=== PATIENT | female | born 1965 | race Caucasian/White ===

== ENCOUNTER 2017-04-08 11:45 | Emergency (ER) | payer SELFPAY ==
[2017-04-08 11:49] VITALS: BP 139/99; PULSE 79; RESP 22; TEMP 98.4; O2SAT 98
[2017-04-08 11:51] VITALS: BP 139/99; PULSE 82; RESP 22; TEMP 98.4; O2SAT 98
[2017-04-08] MEDS ORDERED: SODIUM CHLOR 0.9% 1000 ML INJ 1,000 ML IV SCH (11:54)
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
[2017-04-08] MEDS ORDERED: ONDANSETRON HCL 4 MG/2 ML VIAL IVP ONE (12:00)
[2017-04-08] MEDS ORDERED: LIDOCAINE VISCOUS 2% SOLN 15 ML UDC PO ONE (12:00)
[2017-04-08] MEDS ORDERED: ALUMINUM/MAGNESIUM/SIMETH 30 ML CUP PO ONE (12:00)
[2017-04-08] MEDS ORDERED: LORazepam 2 MG/ML VIAL IV PUSH ONE (12:00)
[2017-04-08 12:34] LABS: AUTOMATED NEUTROPHIL # 2.4 TH/MM3 (1.8-7.7); BASOPHIL # 0.1 TH/MM3 (0-0.2); BASOPHIL % 1.2 % (0.0-2.0); EOSINOPHIL % 0.7 % (0.0-4.0); HEMATOCRIT 34.5 % (35.0-46.0); HEMO FLAGS DIFF FINAL; LYMPH % 43.7 % (9.0-44.0); LYMPHOCYTE # 2.3 TH/MM3 (1.0-4.8); MEAN CELL VOLUME 100.2 FL (80.0-100.0); MEAN CORPUSCULAR HEMOGLOBIN 34.1 PG (27.0-34.0); MONO % 9.6 % (0.0-8.0); NEUT % 44.8 % (16.0-70.0); PLATELET COUNT 125 TH/MM3 (150-450); RED BLOOD COUNT 3.45 MIL/MM3 (4.00-5.30); RED CELL DISTRIBUTION WIDTH 13.5 % (11.6-17.2); WHITE BLOOD COUNT 5.3 TH/MM3 (4.0-11.0)
[2017-04-08 13:00] LABS: ALKALINE PHOSPHATASE 131 U/L (45-117); ALT (GPT) 45 U/L (10-53); ANION GAP 10 MEQ/L (5-15); AST (GOT) 166 U/L (15-37); BICARBONATE 24.9 MEQ/L (21.0-32.0); BLOOD UREA NITROGEN 4 MG/DL (7-18); CHLORIDE 99 MEQ/L (98-107); GLOMERULAR FILTRATION RATE 163 ML/MIN (>89); SODIUM (NA) 134 MEQ/L (136-145); TOTAL BILIRUBIN ADULT 0.6 MG/DL (0.2-1.0)
[2017-04-08 13:01] LABS: POTASSIUM 4.2 MEQ/L (3.5-5.1)
== END 2017-04-08 12:50 | disposition left against medical advice (07) ==
LOC: NEPC 11:45
DX: S70.12XA Contusion of left thigh, initial encounter (principal); T76.21XA Adult sexual abuse, suspected, initial encounter; R10.13 Epigastric pain; R11.2 Nausea with vomiting, unspecified; I34.1 Nonrheumatic mitral (valve) prolapse; I10 Essential (primary) hypertension; R56.9 Unspecified convulsions; Z72.0 Tobacco use; Y09 Assault by unspecified means
CPT/HCPCS: 80053; 83690; 85025; 99283; J2060; J2405; J7030

== ENCOUNTER → 2017-07-28 | Emergency (ER) | payer SELFPAY ==
[~2017-07-28] VITALS: Ht 160 cm; Wt 55.0 kg
[~2017-07-28] MED LIST: SODIUM CHLOR 0.9% 1000 ML INJ 1,000 ML IV ONE; SODIUM CHLORIDE 0.9% FLUSH 10 ML FLUSH IVF PRN; ZOFR4TAB3 SL
[2017-07-28 15:43] VITALS: BP 88/58; PULSE 85; RESP 16; TEMP 98.8; O2SAT 96
== END | disposition left against medical advice (07) ==
LOC: NEDAMB 15:22
DX: R53.1 Weakness (principal); Z53.21 Procedure and treatment not carried out due to patient leaving prior to being seen by health care provider
CPT/HCPCS: 99281